=== PATIENT | male | born 1950 | race Two or more races ===

== ENCOUNTER → 2017-04-20 | Outpatient (REF) | payer OTHER ==
[2017-04-20 19:03] LABS: BASO # 0.1 10^3/uL (0.0-0.2); BASO % 0.8 % (0.0-1.0); EOS % 0.5 % (0.0-3.0); IMMATURE GRANULOCYTE % 0.2 % (0-0); LYMPH # 1.5 10^3/uL (1.5-4.5); LYMPH % 23.5 % (24.0-44.0); MEAN CORPUSCULAR HEMOGLOBIN 32.8 pg (27.0-33.0); MEAN CORPUSCULAR HGB CONC 33.8 g/dl (32.0-36.5); MONO # 0.6 10^3/uL (0.0-0.8); MONO % 8.5 % (0.0-5.0); NEUTROPHILS # 4.4 10^3/uL (1.8-7.7); NEUTROPHILS % 66.5 % (36.0-66.0); PLATELET COUNT, AUTOMATED 184 10^3/uL (150-450); RED CELL DISTRIBUTION WIDTH 12.5 % (11.5-14.5); WHITE BLOOD COUNT 6.6 10^3/uL (4.0-10.0)
[2017-04-20 19:21] LABS: ALBUMIN 3.7 GM/DL (3.2-5.2); ALBUMIN/GLOBULIN RATIO 0.97 (1.00-1.93); ALKALINE PHOSPHATASE 56 U/L (45-117); ALT/SGPT 32 U/L (12-78); ANION GAP 8 MEQ/L (8-16); AST/SGOT 21 U/L (7-37); BILIRUBIN,TOTAL 0.8 MG/DL (0.2-1.0); BLOOD UREA NITROGEN 16 MG/DL (7-18); CALCIUM LEVEL 9.5 MG/DL (8.8-10.2); CARBON DIOXIDE LEVEL 31 MEQ/L (21-32); CHLORIDE LEVEL 102 MEQ/L (98-107); CREATININE FOR GFR 0.85 MG/DL (0.70-1.30); GLOMERULAR FILTRATION RATE > 60.0 (>49); GLUCOSE, FASTING 96 MG/DL (80-110); POTASSIUM SERUM 4.1 MEQ/L (3.5-5.1); SODIUM LEVEL 141 MEQ/L (136-145); TOTAL PROTEIN 7.5 GM/DL (6.4-8.2)
== END ==
LOC: M SFHCADAM 14:44
PROVIDERS: ATTEND Family Medicine
DX: Z87.898 Personal history of other specified conditions (principal); Z86.711 Personal history of pulmonary embolism; Z23 Encounter for immunization
CPT/HCPCS: 80053; 85025; 90471; 90662; 90670; G0463

== ENCOUNTER → 2017-05-31 | Outpatient (REF) | payer OTHER | LOC: M SFHCADAM 12:55 | PROVIDERS: ATTEND Family Medicine | DX: Z11.4 Encounter for screening for human immunodeficiency virus [HIV] (principal); Z83.49 Family history of other endocrine, nutritional and metabolic diseases; I10 Essential (primary) hypertension | CPT/HCPCS: 81256; 87389; G0463 ==

== ENCOUNTER → 2018-01-21 | Outpatient (CLI) | payer OTHER | LOC: M ADAMS 10:27 | DX: M51.36 Other intervertebral disc degeneration, lumbar region (principal); M51.37 Other intervertebral disc degeneration, lumbosacral region; M25.78 Osteophyte, vertebrae | CPT/HCPCS: 72100 ==

== ENCOUNTER → 2018-09-12 | Outpatient (CLI) | payer MEDICARE ==
--- NOTE | 2018-09-13 18:31 | REP ---
Clinical: Left hip pain. Technique: Neutral and frog lateral views of the left hip. Findings: Osseous structures, joint spaces, and surrounding soft tissues are relatively normal for age. No overt osteoarthritic degenerative changes are appreciated. No acute fracture dislocation. Impression: Age-appropriate left hip radiographs. Electronically Signed by Srinath Richardson MD 09/13/2018 06:22 P
--- NOTE | 2018-09-13 18:33 | REP ---
Clinical: Cough. Technique: PA and lateral. Comparison: None. Findings: Presumed chronic-appearing bibasilar changes (left greater than right) including flattening of the diaphragmatic surfaces and blunting of the left costophrenic angle. No focal consolidation. No obvious effusion. No pneumothorax. Mediastinum and cardiac silhouette are within normal limits. Impression: Presumed chronic bibasilar pleuroparenchymal changes. Left effusion cannot be excluded. No prior examinations available for comparison. If the patient remains symptomatic consider chest CT for further investigation. Electronically Signed by Srinath Richardson MD 09/13/2018 06:24 P
== END ==
LOC: M ADAMS 16:22
PROVIDERS: ATTEND Family Medicine
DX: R91.8 Other nonspecific abnormal finding of lung field (principal); M25.552 Pain in left hip; R05 Cough
CPT/HCPCS: 71046; 73502; 80053; 85025; G0463

== ENCOUNTER → 2018-09-12 | Outpatient (REF) | payer MEDICARE ==
[2018-09-12 20:35] LABS: BASO # 0.1 10^3/uL (0.0-0.2); BASO % 1.1 % (0.0-1.0); EOS # 0.3 10^3/uL (0.0-0.50); EOS % 3.2 % (0.0-3.0); HEMATOCRIT 43.8 % (42.0-52.0); HEMOGLOBIN 14.9 g/dl (13.5-17.5); LYMPH # 2.1 10^3/uL (1.5-4.5); LYMPH % 26.2 % (24.0-44.0); MEAN CORPUSCULAR HEMOGLOBIN 32.9 pg (27.0-33.0); MEAN CORPUSCULAR VOLUME 96.7 fl (80.0-96.0); MONO # 0.6 10^3/uL (0.0-0.8); MONO % 7.1 % (0.0-5.0); NEUTROPHILS % 62.3 % (36.0-66.0); PLATELET COUNT, AUTOMATED 204 10^3/uL (150-450); RED BLOOD COUNT 4.53 10^6/uL (4.30-6.10)
[2018-09-12 20:39] LABS: ALBUMIN 3.4 GM/DL (3.2-5.2); ALT/SGPT 25 U/L (12-78); BILIRUBIN,TOTAL 0.6 MG/DL (0.2-1.0); BLOOD UREA NITROGEN 17 MG/DL (7-18); CARBON DIOXIDE LEVEL 31 MEQ/L (21-32); CHLORIDE LEVEL 101 MEQ/L (98-107); CREATININE FOR GFR 0.89 MG/DL (0.70-1.30); GLOMERULAR FILTRATION RATE > 60.0 (>49); GLUCOSE, FASTING 115 MG/DL (70-100); POTASSIUM SERUM 3.1 MEQ/L (3.5-5.1); SODIUM LEVEL 138 MEQ/L (136-145); TOTAL PROTEIN 7.5 GM/DL (6.4-8.2)
== END ==
LOC: M SFHCADAM 16:20
PROVIDERS: ATTEND Family Medicine
DX: I10 Essential (primary) hypertension (principal)

== ENCOUNTER → 2018-10-04 | Outpatient (CLI) | payer MEDICARE ==
--- NOTE | 2018-10-04 15:25 | REP ---
LUMBOSACRAL SPINE: AP and lateral views of the lumbosacral spine performed with three total views obtained. There is no compression fracture. There is straightening of the normal lumbar lordosis. There is mild spurring of L1 and L2 with a more moderate degree of spurring of L3 through S1. There is mild disc space narrowing and subchondral sclerosis at all levels. There is sclerosis and spurring at the posterior facet joints of L3-4, L4-5 and L5-S1. The posterior elements are intact. There is slight curvature toward the left. IMPRESSION: Degenerative changes as above. Electronically Signed by Gerson López MD 10/04/2018 05:04 P
== END ==
LOC: M ADAMS 13:39
PROVIDERS: ATTEND Family Medicine
DX: M51.36 Other intervertebral disc degeneration, lumbar region (principal); M51.37 Other intervertebral disc degeneration, lumbosacral region; M25.78 Osteophyte, vertebrae

== ENCOUNTER → 2018-10-24 | Outpatient (CLI) | payer MEDICARE ==
--- NOTE | 2018-10-24 16:15 | REP ---
MR LUMBAR SPINE WITHOUT CONTRAST: HISTORY: Back pain. Decreased signal intensity on T2-weighted images is present in the lumbar intervertebral discs. The L2-3 through L5-S1 intervertebral discs are decreased in height. These findings are consistent with disc degeneration. A diffuse disc bulge is present at the L1-2 level. There is minimal compression of the thecal sac. The L1 nerves exit the neural foramina without compression. A diffuse disc bulge is present at the L2-3 level. There is an increase in the amount of epidural fat. There is minimal compression of the thecal sac. There is hypertrophy of the posterior articulating facets. The L2 nerves exit the neural foramina without compression. A diffuse disc bulge is present at the L3-4 level. There is an increase in the amount of epidural fat. There is minimal compression of the thecal sac. There is hypertrophy of the posterior articulating facets. The L3 nerves exit the neural foramina without compression. A diffuse disc bulge is present at the L4-5 level. There is an increase in the amount of epidural fat. There is minimal compression of the thecal sac. There is hypertrophy of the posterior articulating facets. There is compression of the right L4 nerve in the neural foramen. The left L4 nerve exits the neural foramen without compression. A diffuse disc bulge is present at the L5-S1 level. This abuts the thecal sac. There is hypertrophy of the posterior articulating facets. There is compression of the left L5 nerves in the neural foramina. The conus medullaris is normal in appearance terminating at the level of the L1-2 intervertebral disc. Hemangiomas are present in the L2 through 4 vertebral bodies. Increased signal intensity on T2 weighted imaged is present in the endplates of the L2 through S1 vertebral bodies. This represents degenerative change. IMPRESSION:1. Diffuse disc bulge at the L1-2 level with minimal thecal sac compression. 2. Diffuse disc bulge and epidural lipomatosis at the L2-3 through L4-5 levels with minimal thecal sac compression. There is compression of the right L4 nerve in the neural foramen. 3. Diffuse disc bulge at the L5-S1 level. This abuts the thecal sac. There is compression of the L5 nerves in the neural foramina. Electronically Signed by Collin Saavedra MD 10/24/2018 04:22 P
== END ==
LOC: M RAD 14:52
PROVIDERS: ATTEND Family Medicine
DX: M51.36 Other intervertebral disc degeneration, lumbar region (principal); M51.37 Other intervertebral disc degeneration, lumbosacral region; M51.26 Other intervertebral disc displacement, lumbar region; M51.27 Other intervertebral disc displacement, lumbosacral region

== ENCOUNTER → 2019-01-06 | Outpatient (CLI) | payer MEDICARE ==
--- NOTE | 2019-01-06 11:39 | REP ---
Chest x-ray: Three views. History: Chronic cough. Comparison chest x-ray September 12, 2018. Findings: There is mild linear pleuroparenchymal fibrosis at the left base unchanged. Left hemidiaphragm is elevated as on prior study. Heart is not enlarged. No acute infiltrate is seen. The thoracic aorta somewhat tortuous. Impression: Chronic pleuroparenchymal changes on the left. No acute disease. Electronically Signed by Khanh Lugo MD 01/06/2019 11:30 A
== END ==
LOC: M ADAMS 10:13
PROVIDERS: ATTEND Family Medicine
DX: J84.10 Pulmonary fibrosis, unspecified (principal); R05 Cough
CPT/HCPCS: 71046; G0463

== ENCOUNTER → 2019-01-09 | Outpatient (CLI) | payer MEDICARE ==
--- NOTE | 2019-01-09 15:36 | NUR ---
Pt seen for Modified Barium Swallow Study d/t c/o globus sensation, regurgitation of breads and gag/vomiting often during meals. Pt presents without oral or pharyngeal phase dysphagia but does have esophageal dysfunction as characterized by: bolus is unable to pass entirely through the upper esophagus. Pt given canned peaches with thin-liquid base and bread spread with barium. Stasis noted in thupper esophagus with minimal clearing given liquid wash. Delayed gag with bread item and small amount of vomiting. Mostof bread expelled and stasis was absent from the esophagus. Pt trialed barium tablet with thin-liquid wash. Tablet remained in the upper esophagus. Liquid wash was unsuccessful. Ask Pt to try to cough it out and he did successfully with a very forceful cough. Recommend: Moist soft solids (extra sauces/gravies/condiments) and regular thin liquids. Meds crushed in puree assist. Recommend: consider Endoscopy Addendum: 01/09/19 at 1543 by BENNETT VALENZUELA JUNAID Amended: Links added.
--- NOTE | 2019-01-09 15:43 | REP ---
Examination Requested: Cookie Swallow Reason For Exam: Dysphasia The procedure was performed by TERESA Haq, under the direct supervision of Dr. Del Valle. The procedure was performed with Magaly Oropeza from speech pathology present. 5 ml aliquots of thin, pudding, mixed fruit, soft food, and pill consistency barium was administered. No aspiration or penetration was visualized throughout the course of the exam. However, most consistencies were unable to pass into the upper esophagus, which is concerning for obstruction. The detailed report of this examination will be provided by speech pathology. 4.1 minutes of fluoroscopy time was utilized for this procedure. Reviewed by TERESA Landon 01/09/2019 02:55 P Electronically Signed by Gerson Del Valle MD 01/09/2019 03:34 P
== END ==
LOC: M ST 10:56
PROVIDERS: ATTEND Family Medicine
DX: R13.10 Dysphagia, unspecified (principal)

== ENCOUNTER → 2019-07-14 | Outpatient (CLI) | payer MEDICARE ==
--- NOTE | 2019-07-15 07:53 | REP ---
Bilateral lower extremity duplex arterial ultrasound: Right lower extremity: Brachial artery peak systole: 140 mmHg. Dorsalis pedis peak systole: 150 mmHg. SYMONE: 1.0 Peak Systolic Phasicity Velocity [employer] 111 biphasic Profunda 53 point Y - SFA prox 880.1 biphasic SFA mid 118 triphasic SFA dist 146 triphasic Pop 103.3 triphasic THOM prox 64.7 triphasic Tib/P tr 74.7 triphasic ETHYL BLENDER pr 49.8 triphasic ETHYL BLENDER dst occluded -- THOM dst the 114 Triphasic Left lower extremity: Brachial artery peak systole: 140 mmHg. Dorsalis pedis peak systole: 160 mmHg SYMONE: 1.1 Peak Systolic Phasicity Velocity [employer] 82.2 triphasic Profunda 74.0 triphasic SFA prox 160 triphasic SFA mid 127 triphasic SFA dist 93.9 triphasic Pop 71.1 triphasic THOM prox 68.5 biphasic Tib/P tr 78.9 triphasic ETHYL BLENDER pr 71.1 triphasic ETHYL BLENDER dst 74.4 triphasic THOM dst 56.4 triphasic Impression: There is atheromatous plaque bilaterally. There is mild stenosis in the right mid and distal SFA. The right ETHYL BLENDER is occluded distally, collateral flow is identified. There is a stenosis in the distal right THOM. There is a mild stenosis in the proximal and distal left SFA. Electronically Signed by Gerson Del Valle MD 07/15/2019 07:44 A
--- NOTE | 2019-07-15 08:45 | REP ---
Bilateral lower extremity duplex venous ultrasound with reflux study: History: Claudication. Chronic venous hypertension. Findings: There is echogenic material thickening the wall of the popliteal vein on the right consistent with old thrombus. Otherwise, the deep veins are anechoic and fully compressible from the groin to the popliteal fossa in both lower extremities on two-dimensional scanning. Color flow and spectral Doppler interrogation are unremarkable. There is no evidence of occlusive DVT. No other evidence of DVT is seen. Reflux findings: Significant reflux is seen in both lower extremity deep venous systems. On the right, there are collaterals seen in the proximal thigh at the greater saphenous vein. At mid thigh there is a collateral as well. At the proximal greater saphenous vein there is 2.0 second duration reflux in a 7.3 mm greater saphenous vein. The greater saphenous vein at the midthigh on the right measures 6.2 mm and does not show reflux. At the knee the greater saphenous vein measures 6.7 mm without reflux. The lesser saphenous vein measures 4.5 mm and demonstrates 3.0 second duration reflux. Reflux greater than 0.5 seconds in duration is seen in the common femoral vein as well as in the anterior accessory greater saphenous vein and in the proximal mid and distal superficial femoral vein and the popliteal vein. On the right, reflux greater than 0.5 second duration is seen in the common femoral vein, the proximal mid and distal superficial femoral vein, and the popliteal vein. The greater saphenous vein measures 7.6 mm in dimension proximally at the saphenofemoral junction without observable reflux. At mid thigh the GSV measures 5.1 mm without reflux. At the knee its measurement is 4.9 mm without observable reflux. The lesser saphenous vein on the left measures 6.3 mm in diameter and demonstrates 3.3 second duration reflux. Impression: 1. 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 No other evidence of DVT. 2. There is deep system reflux bilaterally in the lower extremities. Reflux is seen in the lesser saphenous veins bilaterally as well and in the proximal greater saphenous vein on the right. Electronically Signed by Khanh Lugo MD 07/15/2019 09:54 A
== END ==
LOC: M RAD 13:32
PROVIDERS: ATTEND Physician Assistant
DX: I70.213 Atherosclerosis of native arteries of extremities with intermittent claudication, bilateral legs (principal); I87.393 Chronic venous hypertension (idiopathic) with other complications of bilateral lower extremity

== ENCOUNTER → 2019-07-18 | Outpatient (REF) | payer MEDICARE | LOC: M SFHCADAM 07:12 | PROVIDERS: ATTEND Physician Assistant Medical | DX: E79.0 Hyperuricemia without signs of inflammatory arthritis and tophaceous disease (principal) ==

== ENCOUNTER → 2019-09-08 | Outpatient (CLI) | payer MEDICARE ==
[~2019-09-08] MED LIST: E-Z-GAS II EFFERVESCENT PACKET (SODIUM BICARB./CITRIC ACID/SIMETHICONE) As Ordered ONE; E-Z-HD 98% w/w 340GM SUSP BTL As Ordered ONE; E-Z-PAQUE 96% w/w SUSP 176GM BTL As Ordered ONE
--- NOTE | 2019-09-08 18:12 | REP ---
Esophagram The procedure was performed under the direct supervision of Dr. Lugo. The images were reviewed with Dr. Lugo. A single view PA chest x-ray is submitted as a sorter packer film. There is no change compared to a previous chest x-ray performed on 01/06/2019 Liquid barium and gas producing granules were given in the erect position as well as liquid barium in the prone oblique positions in order to perform a double contrast esophagram examination. The oral and pharyngeal stages of deglutition are unremarkable. There is a large Zenker's diverticulum. Esophageal transport is prompt and efficient and there is no esophagitis, stricture, mucosal ring or hiatal hernia. Gastroesophageal reflux is not demonstrated on this examination. Impression: There is a large Zenker's diverticulum. Otherwise unremarkable double contrast esophagram examination. One minute of fluoro time was utilized for this procedure. Electronically Signed by TERESA Chavez 09/08/2019 05:30 P Electronically Signed by Gerson López MD 09/08/2019 06:04 P
== END ==
LOC: M RAD 07:40
PROVIDERS: ATTEND Internal Medicine Gastroenterology
DX: R13.10 Dysphagia, unspecified (principal)

== ENCOUNTER → 2020-04-08 | Outpatient (REF) | payer MEDICARE ==
[2020-04-08 16:53] LABS: BASO # 0.1 10^3/uL (0.0-0.2); BASO % 0.8 % (0.0-1.0); EOS % 0.1 % (0.0-3.0); HEMATOCRIT 45.5 % (42.0-52.0); HEMOGLOBIN 14.9 g/dl (13.5-17.5); LYMPH # 1.6 10^3/uL (1.5-5.0); LYMPH % 20.1 % (24.0-44.0); MEAN CORPUSCULAR HGB CONC 32.7 g/dl (32.0-36.5); MEAN CORPUSCULAR VOLUME 100.7 fl (80.0-96.0); MONO # 0.9 10^3/uL (0.0-0.8); MONO % 10.9 % (0.0-5.0); NEUTROPHILS # 5.3 10^3/uL (1.5-8.5); NEUTROPHILS % 67.7 % (36.0-66.0); PLATELET COUNT, AUTOMATED 205 10^3/uL (150-450); RED BLOOD COUNT 4.52 10^6/uL (4.30-6.10); WHITE BLOOD COUNT 7.8 10^3/uL (4.0-10.0)
[2020-04-08 17:15] LABS: HEMOGLOBIN A1c 5.1 %
[2020-04-08 17:20] LABS: ALBUMIN 3.6 GM/DL (3.2-5.2); ALT/SGPT 38 U/L (12-78); BILIRUBIN,TOTAL 0.5 MG/DL (0.2-1.0); BLOOD UREA NITROGEN 14 MG/DL (7-18); CARBON DIOXIDE LEVEL 29 MEQ/L (21-32); CHLORIDE LEVEL 102 MEQ/L (98-107); CHOLESTEROL LEVEL 221 MG/DL (<200); CHOLESTEROL RISK RATIO 1.888 (<5); CREATININE FOR GFR 0.95 MG/DL (0.70-1.30); GLOMERULAR FILTRATION RATE > 60.0 (>42); GLUCOSE, FASTING 110 MG/DL (70-100); HDL CHOLESTEROL 117 MG/DL (>40); LDL CHOLESTEROL 73 MG/DL (<100); NON-HDL-C 104 MG/DL; POTASSIUM SERUM 4.7 MEQ/L (3.5-5.1); SODIUM LEVEL 138 MEQ/L (136-145); TOTAL PROTEIN 7.3 GM/DL (6.4-8.2); TRIGLYCERIDES LEVEL 154 MG/DL (<150)
== END ==
LOC: M SFHCADAM 11:08
PROVIDERS: ATTEND Physician Assistant Medical
DX: R13.10 Dysphagia, unspecified (principal); E66.01 Morbid (severe) obesity due to excess calories; I11.9 Hypertensive heart disease without heart failure; Z79.899 Other long term (current) drug therapy

== ENCOUNTER → 2020-11-10 | Outpatient (CLI) | payer MEDICARE ==
--- NOTE | 2020-11-10 17:57 | REP ---
INDICATION: DIVERTICULUM OF ESOPHAGUS. COMPARISON: Previous exam dated 09/08/2019 TECHNIQUE: This procedure was performed by [facility], under the direct supervision of Dr. López. Images were reviewed with Dr. López prior to dictation. Liquid barium and gas producing crystals were given in the erect position, as well as liquid barium in the prone oblique position in order to perform a double contrast esophagram examination. FINDINGS: A single view PA chest x-ray is submitted as a environmental programs specialist film. The superior mediastinal structures are midline. The heart size is within normal limits. The lungs are clear. The oral and pharyngeal stages of deglutition were unremarkable. Again visualized is a large Zenker's diverticulum, there is no change since the previous exam. Esophageal transport is prompt and efficient and there is no evidence of esophagitis, stricture, or mucosal ring. There is no evidence of a hiatal hernia. Gastroesophageal reflux was visualized to the level of the gabriel. IMPRESSION: 1. Large Zenker's diverticulum, no change since previous exam dated 09/08/2019. 2. Gastroesophageal reflux to the level of the gabriel. 0.2 minutes of fluoroscopy time was utilized for this procedure. Some fluoroscopic images are performed with last image hold technology. These images require no additional radiation. <Electronically signed by Dianne Miller > 11/10/20 [id number] <Electronically signed by Gerson López > 11/10/20 [id number]
== END ==
LOC: M RAD 08:28
PROVIDERS: ATTEND Otolaryngology
DX: K22.5 Diverticulum of esophagus, acquired (principal); K21.9 Gastro-esophageal reflux disease without esophagitis

== ENCOUNTER → 2020-12-31 | Outpatient (CLI) | payer MEDICARE ==
[~2020-12-31] MED LIST changes: +ALLO100T; +ATOR1TAB21; +CENT1TAB2 PO; +CHOL50003 PO; -E-Z-GAS II EFFERVESCENT PACKET (SODIUM BICARB./CITRIC ACID/SIMETHICONE) As Ordered ONE; -E-Z-HD 98% w/w 340GM SUSP BTL As Ordered ONE; -E-Z-PAQUE 96% w/w SUSP 176GM BTL As Ordered ONE; +FENO54TA2; +FURO40TA2; +LISI10TA22; +POTA-151 PO; +XARE20TA
== END ==
LOC: M LABSMTC 11:32
PROVIDERS: ATTEND Anesthesiology
DX: Z01.812 Encounter for preprocedural laboratory examination (principal)

== ENCOUNTER 2021-01-05 08:41 | Day surgery (SDC) | payer MEDICARE ==
[~2021-01-05] VITALS: Ht 203.2 cm; Wt 113.4 kg
[~2021-01-05 08:41] MED LIST changes: +LR 1,000 ML IV ONE; -POTA-151 PO; +POTA20TA6 PO
[2021-01-05] MEDS ORDERED: fentaNYL 250 MCG/5 ML INJECTION (J3010) As Ordered ONE (09:56)
[2021-01-05] MEDS ORDERED: ONDANSETRON 4MG/2ML VIAL As Ordered ONE (09:57)
[2021-01-05] MEDS ORDERED: ROCURONIUM BROMIDE 50 MG/5 ML VIAL As Ordered ONE ×2 (09:57→11:15)
[2021-01-05] MEDS ORDERED: MIDAZOLAM INJ 2MG/2ML VIAL (J2250 PER 1MG) As Ordered ONE (09:57)
[2021-01-05] MEDS ORDERED: propofoL 200 MG/20 ML VIAL As Ordered ONE (09:57)
[2021-01-05] MEDS ORDERED: LIDOCAINE 2% 100MG/5ML SDV (FOR ANES.) As Ordered ONE (09:57)
[2021-01-05] MEDS ORDERED: dexameTHASONE 4 MG/ML 1ML VIAL (J1100 PER 1MG) As Ordered ONE (09:57)
[2021-01-05] MEDS ORDERED: CETACAINE SPRAY 5GM As Ordered ONE (09:59)
[2021-01-05] MEDS ORDERED: METHYLENE BLUE 0.5% (5MG/ML) 10 ML AMP (PROVAYBLUE) As Ordered ONE (10:26)
[2021-01-05] MEDS ORDERED: EPINEPHrine 1MG/ML INJ 30ML MD-VIAL As Ordered ONE (10:26)
[2021-01-05] MEDS ORDERED: SUGAMMADEX SODIUM 500 MG/5 ML VIAL (BRIDION) As Ordered ONE (11:11)
[2021-01-05] MEDS ORDERED: PHENYLephrine 500MCG 5ML (100MCG/ML) SYRINGE As Ordered ONE (11:12)
[2021-01-05] MEDS ORDERED: ACETAMINOPHEN 1000MG 100ML IV BTL (OFIRMEV) (J0131 PER 10MG) As Ordered ONE (11:24)
[2021-01-05] MEDS ORDERED: oxyCODONE 5MG TAB PO PRN (11:45)
[2021-01-05] MEDS ORDERED: LR 1,000 ML IV SCH (11:45)
[2021-01-05] MEDS ORDERED: ONDANSETRON 4MG/2ML VIAL IV PRN (11:45)
[2021-01-05] MEDS ORDERED: HYDROMORPHONE HCL 0.5 MG/ 0.5 ML SYRINGE (J1170 PER 1) IV PRN (11:45)
[2021-01-05] MEDS ORDERED: fentaNYL 100 MCG/2 ML INJECTION (J3010) IV PRN (11:45)
--- NOTE | 2021-01-05 14:11 | RO ---
OPERATIVE NOTE DATE OF OPERATION: 01/05/2021 PREOPERATIVE DIAGNOSIS: Zenker's diverticulum. POSTOPERATIVE DIAGNOSIS: Zenker's diverticulum. OPERATIVE PROCEDURE: Direct laryngoscopy. FINDINGS: Because the patient was not able to open his mouth well and he had large medial incisors with a narrow mandibular arch, I was unable to advance the laryngoscope down far enough into the hypopharynx so that I could see the opening to the esophagus. PROCEDURE IN DETAIL: Under general anesthesia, with the patient intubated, the patient was draped in the usual manner. I used a dental guard Aquaplast. I inserted the laryngoscope, advanced it down through the mouth into the oropharynx and hypopharyngeal area. I advanced it into the hypopharyngeal area, but I could not get it far enough down because of the above problems. I was able to see the diverticulum. I could put the scope in and I scoped down and looked inside the sac, but I could not get a good view of the opening into the esophagus. I tried manipulating his tongue and pushing the laryngoscope further, however, I was afraid that I might fracture his incisors. So, after attempting this for a period of time, I decided that I would not do the procedure. The patient tolerated the procedure well. There was no blood loss. The patient was extubated and transferred to the recovery room in excellent condition.
[2021-01-05 15:35] VITALS: BP 120/60
[2021-01-05 16:05] VITALS: BP 126/63
[2021-01-05 16:35] VITALS: BP 127/64
[2021-01-05] MEDS: POTASSIUM CHLORIDE 10 MEQ SR TABLET PO SCH (17:27)
[2021-01-05] MEDS: FUROSEMIDE 20 MG TAB PO SCH (17:27)
[2021-01-05] MEDS: ATORVASTATIN 20 MG TAB PO SCH (17:27)
[2021-01-05] MEDS: allopurinoL 100 MG TAB PO SCH (17:29)
[2021-01-05] MEDS: VITAMIN D 1,000 INTERNATIONAL UNITS TABLET PO SCH (17:29)
[2021-01-05 17:35] VITALS: BP 132/73
[2021-01-05] MEDS ORDERED: RIVAROXABAN 20 MG TAB (XARELTO) PO SCH (18:00)
[2021-01-05] MEDS: FENOFIBRATE 48 MG TAB (TRICOR) PO SCH (18:20)
[2021-01-05 18:44] VITALS: BP 135/70
[2021-01-05 22:00] VITALS: BP 108/58
[2021-01-06] MEDS ORDERED: LORazepam 1 MG TAB PO ONE (00:15)
[2021-01-06] MEDS ORDERED: diphenhydrAMINE 25MG CAP PO ONE (01:45)
[2021-01-06 02:00] VITALS: BP 107/53
[2021-01-06 05:49] VITALS: BP 109/71
[2021-01-06 09:59] VITALS: BP 109/71
[2021-01-06] MEDS: POTASSIUM CHLORIDE 10 MEQ SR TABLET PO SCH (09:59)
[2021-01-06] MEDS: FUROSEMIDE 20 MG TAB PO SCH (09:59)
[2021-01-06] MEDS: ATORVASTATIN 20 MG TAB PO SCH (09:59)
[2021-01-06] MEDS: allopurinoL 100 MG TAB PO SCH (10:00)
[2021-01-06] MEDS: FENOFIBRATE 48 MG TAB (TRICOR) PO SCH (10:00)
[2021-01-06] MEDS: VITAMIN D 1,000 INTERNATIONAL UNITS TABLET PO SCH (10:00)
== END 2021-01-06 12:25 | disposition home or self-care (01) ==
LOC: M SDC 08:41 → M MS5PR 15:35 → M SDC 01-06 12:25
PROVIDERS: ATTEND Otolaryngology
DX: K22.5 Diverticulum of esophagus, acquired (principal); I10 Essential (primary) hypertension; K21.9 Gastro-esophageal reflux disease without esophagitis; M10.9 Gout, unspecified; F41.9 Anxiety disorder, unspecified; F32.9 Major depressive disorder, single episode, unspecified; Z79.899 Other long term (current) drug therapy
CPT/HCPCS: 31525; J0131; J1100; J2250; J2370; J2405; J3010

== ENCOUNTER → 2021-05-09 | Outpatient (REF) | payer MEDICARE ==
[~2021-05-09] MED LIST changes: -LR 1,000 ML IV ONE
[2021-05-09 18:31] LABS: BASO # 0.1 10^3/uL (0.0-0.2); BASO % 0.7 % (0.0-1.0); EOS # 0.2 10^3/uL (0.0-0.5); EOS % 2.3 % (0.0-3.0); HEMATOCRIT 40.2 % (42.0-52.0); HEMOGLOBIN 13.4 g/dl (13.5-17.5); LYMPH # 1.2 10^3/uL (1.5-5.0); LYMPH % 16.4 % (24.0-44.0); MEAN CORPUSCULAR HEMOGLOBIN 33.7 pg (27.0-33.0); MEAN CORPUSCULAR HGB CONC 33.3 g/dl (32.0-36.5); MONO % 13.1 % (2.0-8.0); NEUTROPHILS # 4.9 10^3/uL (1.5-8.5); NEUTROPHILS % 67.2 % (36.0-66.0); PLATELET COUNT, AUTOMATED 143 10^3/uL (150-450); RED BLOOD COUNT 3.98 10^6/uL (4.30-6.10); WHITE BLOOD COUNT 7.3 10^3/uL (4.0-10.0)
[2021-05-09 19:02] LABS: ALBUMIN 3.3 GM/DL (3.2-5.2); ALT/SGPT 61 U/L (12-78); BILIRUBIN,TOTAL 0.7 MG/DL (0.2-1.0); BLOOD UREA NITROGEN 18 MG/DL (7-18); CALCIUM LEVEL 9.4 MG/DL (8.8-10.2); CARBON DIOXIDE LEVEL 26 MEQ/L (21-32); CHLORIDE LEVEL 103 MEQ/L (98-107); CHOLESTEROL LEVEL 233 MG/DL (<200); CHOLESTEROL RISK RATIO 2.647 (<5); CREATININE FOR GFR 1.05 MG/DL (0.70-1.30); GLOMERULAR FILTRATION RATE > 60.0 (>42); GLUCOSE, FASTING 126 MG/DL (70-100); HDL CHOLESTEROL 88 MG/DL (>40); LDL CHOLESTEROL 118 MG/DL (<100); NON-HDL-C 145 MG/DL; POTASSIUM SERUM 3.8 MEQ/L (3.5-5.1); SODIUM LEVEL 136 MEQ/L (136-145); TOTAL 25(OH) VITAMIN D 37.8 NG/ML (30.0-100.0); TOTAL PROTEIN 7.3 GM/DL (6.4-8.2); TRIGLYCERIDES LEVEL 133 MG/DL (<150)
[2021-05-09 19:09] LABS: HEMOGLOBIN A1c 4.9 %
== END ==
LOC: M SFHCADAM 16:08
PROVIDERS: ATTEND Physician Assistant Medical
DX: I11.9 Hypertensive heart disease without heart failure (principal); R13.10 Dysphagia, unspecified; E66.01 Morbid (severe) obesity due to excess calories; Z79.899 Other long term (current) drug therapy

== ENCOUNTER → 2021-06-06 | Outpatient (REF) | payer MEDICARE ==
[2021-06-06 17:57] LABS: HEMATOCRIT 40.6 % (42.0-52.0); HEMOGLOBIN 13.1 g/dl (13.5-17.5); MEAN CORPUSCULAR HEMOGLOBIN 32.7 pg (27.0-33.0); MEAN CORPUSCULAR HGB CONC 32.3 g/dl (32.0-36.5); MEAN CORPUSCULAR VOLUME 101.2 fl (80.0-96.0); PLATELET COUNT, AUTOMATED 192 10^3/uL (150-450); RED BLOOD COUNT 4.01 10^6/uL (4.30-6.10); WHITE BLOOD COUNT 6.2 10^3/uL (4.0-10.0)
[2021-06-06 19:54] LABS: FOLATE 23.1 NG/ML; PERCENT SATURATION 26.7 % (19.7-50.0)
== END ==
LOC: M SFHCADAM 11:35
PROVIDERS: ATTEND Physician Assistant Medical
DX: D64.9 Anemia, unspecified (principal)

== ENCOUNTER → 2021-11-09 | Outpatient (CLI) | payer MEDICARE ==
[~2021-11-09] MED LIST changes: -ALLO100T; +ALLO100T PO; -ATOR1TAB21; +ATOR1TAB21 PO; -FENO54TA2; +FENO54TA2 PO; +HYDR-3490 PO; -LISI10TA22; +LISI10TA22 PO; +POTA-151 PO; -POTA20TA6 PO; -XARE20TA; +XARE20TA PO
== END ==
LOC: M LABSMTC 11:06
PROVIDERS: ATTEND Anesthesiology
DX: Z01.818 Encounter for other preprocedural examination (principal); Z11.52 Encounter for screening for COVID-19

== ENCOUNTER 2021-11-14 09:10 | Day surgery (SDC) | payer MEDICARE ==
[~2021-11-14] VITALS: Ht 185.4 cm; Wt 113.8 kg
[~2021-11-14 09:10] MED LIST changes: +NS 1,000 ML IV ONE
[2021-11-14] MEDS ORDERED: fentaNYL 100 MCG/2 ML INJECTION As Ordered ONE (09:22)
[2021-11-14] MEDS ORDERED: propofoL 500 MG/50 ML VIAL As Ordered ONE (09:22)
[2021-11-14] MEDS ORDERED: LIDOCAINE 2% 100MG/5ML SDV (FOR ANES.) As Ordered ONE (09:22)
[2021-11-14] MEDS ORDERED: ePHEDrine SULFATE 25 MG/5 ML(5MG/ML) SYRINGE As Ordered ONE (10:48)
[2021-11-14 11:30] VITALS: BP 130/59
== END 2021-11-14 12:00 | disposition home or self-care (01) ==
LOC: M OPP 09:10
PROVIDERS: ATTEND Internal Medicine Gastroenterology
DX: Z12.11 Encounter for screening for malignant neoplasm of colon (principal); Z86.010 Personal history of colon polyps; D12.4 Benign neoplasm of descending colon; K29.70 Gastritis, unspecified, without bleeding; K29.80 Duodenitis without bleeding; R10.13 Epigastric pain; Z79.899 Other long term (current) drug therapy; Z88.8 Allergy status to other drugs, medicaments and biological substances; Z86.711 Personal history of pulmonary embolism; Z86.718 Personal history of other venous thrombosis and embolism; Z87.891 Personal history of nicotine dependence
CPT/HCPCS: 43239; 45385; 88305; 88342; J3010

== ENCOUNTER → 2022-01-23 | Outpatient (REF) | payer MEDICARE ==
[~2022-01-23] MED LIST changes: -NS 1,000 ML IV ONE
== END ==
LOC: M LAB REF 16:07
PROVIDERS: ATTEND Physician Assistant Medical
DX: Z09 Encounter for follow-up examination after completed treatment for conditions other than malignant neoplasm (principal); B96.81 Helicobacter pylori [H. pylori] as the cause of diseases classified elsewhere

== ENCOUNTER → 2022-05-29 | Outpatient (REF) | payer MEDICARE ==
[2022-05-29 17:12] LABS: BASO % 0.6 % (0.0-1.0); EOS # 0.2 10^3/uL (0.0-0.5); EOS % 2.2 % (0.0-3.0); HEMATOCRIT 39.5 % (42.0-52.0); HEMOGLOBIN 12.9 g/dl (13.5-17.5); LYMPH # 1.6 10^3/uL (1.5-5.0); MEAN CORPUSCULAR HEMOGLOBIN 32.8 pg (27.0-33.0); MEAN CORPUSCULAR HGB CONC 32.7 g/dl (32.0-36.5); MEAN CORPUSCULAR VOLUME 100.5 fl (80.0-96.0); MONO # 0.6 10^3/uL (0.0-0.8); MONO % 8.8 % (2.0-8.0); NEUTROPHILS # 4.7 10^3/uL (1.5-8.5); NEUTROPHILS % 66.1 % (36.0-66.0); PLATELET COUNT, AUTOMATED 245 10^3/uL (150-450); RED BLOOD COUNT 3.93 10^6/uL (4.30-6.10); WHITE BLOOD COUNT 7.1 10^3/uL (4.0-10.0)
[2022-05-29 17:51] LABS: ALBUMIN 3.5 G/DL (3.2-5.2); ALKALINE PHOSPHATASE 48 U/L (46-116); ALT/SGPT 18 U/L (7.0-40); AST/SGOT 17 U/L (<34); BILIRUBIN,TOTAL 0.5 MG/DL (0.3-1.2); BLOOD UREA NITROGEN 17 MG/DL (9-23); CALCIUM LEVEL 9.2 MG/DL (8.3-10.6); CARBON DIOXIDE LEVEL 24 MMOL/L (20-31); CHLORIDE LEVEL 104 MMOL/L (98-107); CHOLESTEROL LEVEL 155 MG/DL (<200); CHOLESTEROL RISK RATIO 3.26 (<5); GLOMERULAR FILTRATION RATE > 60.0 (>42); GLUCOSE, FASTING 99 MG/DL (74-106); HDL CHOLESTEROL 47.5 MG/DL (>40); LDL CHOLESTEROL 74.7 MG/DL (<100); NON-HDL-C 108 MG/DL; POTASSIUM SERUM 4.3 MMOL/L (3.5-5.1); SODIUM LEVEL 138 MMOL/L (136-145); TOTAL PROTEIN 6.9 G/DL (5.7-8.2); TRIGLYCERIDES LEVEL 164 MG/DL (<150)
== END ==
LOC: M SFHCADAM 14:06
PROVIDERS: ATTEND Physician Assistant Medical
DX: I11.9 Hypertensive heart disease without heart failure (principal); I50.9 Heart failure, unspecified; E66.01 Morbid (severe) obesity due to excess calories

== ENCOUNTER → 2022-08-04 | Outpatient (CLI) | payer MEDICARE | LOC: M PLARAD 12:43 | PROVIDERS: ATTEND Physician Assistant | DX: S32.010A Wedge compression fracture of first lumbar vertebra, initial encounter for closed fracture (principal); X58.XXXA Exposure to other specified factors, initial encounter; Y92.9 Unspecified place or not applicable ==

== ENCOUNTER → 2022-08-18 | Outpatient (CLI) | payer MEDICARE | LOC: M SOG 09:07 | PROVIDERS: ATTEND Orthopaedic Surgery | DX: M54.50 Low back pain, unspecified (principal) ==

== ENCOUNTER → 2022-08-30 | Outpatient (REF) | payer MEDICARE ==
[2022-08-30 17:19] LABS: BASO # 0.1 10^3/uL (0.0-0.2); EOS # 0.3 10^3/uL (0.0-0.5); EOS % 4.4 % (0.0-3.0); HEMATOCRIT 36.6 % (42.0-52.0); LYMPH # 1.6 10^3/uL (1.5-5.0); LYMPH % 23.1 % (24.0-44.0); MEAN CORPUSCULAR HEMOGLOBIN 31.3 pg (27.0-33.0); MEAN CORPUSCULAR HGB CONC 32.8 g/dl (32.0-36.5); MEAN CORPUSCULAR VOLUME 95.6 fl (80.0-96.0); MONO # 0.6 10^3/uL (0.0-0.8); MONO % 8.5 % (2.0-8.0); NEUTROPHILS # 4.3 10^3/uL (1.5-8.5); NEUTROPHILS % 62.7 % (36.0-66.0); PLATELET COUNT, AUTOMATED 225 10^3/uL (150-450); RED BLOOD COUNT 3.83 10^6/uL (4.30-6.10); WHITE BLOOD COUNT 6.8 10^3/uL (4.0-10.0)
[2022-08-30 17:43] LABS: C REACTIVE PROTEIN QUANTITATIV 0.7 MG/DL (<1.0)
[2022-08-30 17:46] LABS: ALBUMIN 3.6 G/DL (3.2-5.2); BILIRUBIN,TOTAL 0.5 MG/DL (0.3-1.2); CALCIUM LEVEL 9.2 MG/DL (8.3-10.6); CREATININE FOR GFR 1.47 MG/DL (0.70-1.30); PHOSPHORUS LEVEL 3.4 MG/DL (2.4-5.1); POTASSIUM SERUM 4.3 MMOL/L (3.5-5.1); TOTAL 25(OH) VITAMIN D 33.5 NG/ML (20.0-100.0); TOTAL PROTEIN 6.9 G/DL (5.7-8.2)
[2022-08-30 17:56] LABS: ERYTHROCYTE SEDIMENTATION RATE 21 mm/hr (0-20)
== END ==
LOC: M SFHCADAM 14:29
PROVIDERS: ATTEND Physician Assistant Medical
DX: I11.9 Hypertensive heart disease without heart failure (principal); S32.010D Wedge compression fracture of first lumbar vertebra, subsequent encounter for fracture with routine healing; S32.030S Wedge compression fracture of third lumbar vertebra, sequela; R41.3 Other amnesia; Z79.899 Other long term (current) drug therapy

== ENCOUNTER → 2022-09-12 | Outpatient (CLI) | payer MEDICARE | LOC: M WHC 12:19 | PROVIDERS: ATTEND Physician Assistant Medical | DX: S32.010D Wedge compression fracture of first lumbar vertebra, subsequent encounter for fracture with routine healing (principal); S32.030S Wedge compression fracture of third lumbar vertebra, sequela; I11.9 Hypertensive heart disease without heart failure ==

== ENCOUNTER 2022-09-18 13:00 | Outpatient (RCR) | payer MEDICARE | END 2022-09-22 | LOC: M PT 13:00 | PROVIDERS: ATTEND Orthopaedic Surgery | DX: M54.50 Low back pain, unspecified (principal); M48.50XA Collapsed vertebra, not elsewhere classified, site unspecified, initial encounter for fracture ==

== ENCOUNTER → 2022-09-25 | Outpatient (CLI) | payer MEDICARE | LOC: M SOG 08:03 | PROVIDERS: ATTEND Orthopaedic Surgery | DX: M54.50 Low back pain, unspecified (principal) ==

== ENCOUNTER 2022-09-26 15:05 | Outpatient (RCR) | payer MEDICARE | END 2022-10-22 | LOC: M PT 15:05 | PROVIDERS: ATTEND Orthopaedic Surgery | DX: M54.50 Low back pain, unspecified (principal); M48.50XA Collapsed vertebra, not elsewhere classified, site unspecified, initial encounter for fracture ==

== ENCOUNTER 2023-01-30 18:09 | Inpatient (IN) | payer MEDICARE ==
[~2023-01-30] VITALS: Ht 177.8 cm; Wt 108.1 kg
[~2023-01-30 18:09] MED LIST changes: -FURO40TA2; +FURO40TA2 PO
[2023-01-30] MEDS ORDERED: NOREPINEPHRINE 4MG IN D5 250ML 4 MG in IV 1 EA IV SCH ×2 (18:20)
[2023-01-30] MEDS ORDERED: LIDOCAINE 2% 5ML JELLY UROJET TOP ONE (18:20)
[2023-01-30 18:36] LABS: HEMATOCRIT 37.9 % (42.0-52.0); HEMOGLOBIN 11.8 g/dl (13.5-17.5); MEAN CORPUSCULAR HEMOGLOBIN 32.4 pg (27.0-33.0); MEAN CORPUSCULAR HGB CONC 31.1 g/dl (32.0-36.5); MEAN CORPUSCULAR VOLUME 104.1 fl (80.0-96.0); PLATELET COUNT, AUTOMATED 184 10^3/uL (150-450); RED BLOOD COUNT 3.64 10^6/uL (4.30-6.10); WHITE BLOOD COUNT 9.2 10^3/uL (4.0-10.0)
[2023-01-30] MEDS ORDERED: VASOPRESSIN INJ 20 UNITS in NS 500 ML IV SCH (18:40)
[2023-01-30] MEDS ORDERED: NS 1,000 ML IV ONE ×2 (18:40)
[2023-01-30 18:45] LABS: ABG BASE EXCESS -20.1 (-2.0-2.0); ABG HCO3 12.4 MMOL/L (22.0-26.0); ABG PARTIAL PRESSURE O2 107.3 mmHg (75.0-100.0); ABG STANDARD HCO3 9.6 MMOL/L. (22.0-26.0); ABG TOTAL CO2 14.2 MMOL/L (23.0-31.0)
[2023-01-30 18:47] LABS: ABG PARTIAL PRESSURE CO2 61.2 mmHg (35.0-45.0); ABG pH (ARTERIAL) 6.923 UNITS (7.350-7.450)
[2023-01-30] MEDS ORDERED: D5W 1,000 ML IV SCH (18:50)
[2023-01-30] MEDS ORDERED: ISOVUE-370 76% 100ML VIAL As Ordered ONE (18:53)
[2023-01-30 19:02] LABS: INR 1.33; PROTHROMBIN TIME 16.7 SECONDS (12.5-14.5)
[2023-01-30 19:02] LABS: CK-MB VALUE MASS < 1.0 NG/ML (<3.6)
[2023-01-30 19:03] LABS: ETHYL ALCOHOL (ETHANOL) 0.286 % (0.000-0.010)
[2023-01-30 19:06] LABS: ACETAMINOPHEN LEVEL < 2.0 UG/ML (10.0-20.0); ALBUMIN 2.7 G/DL (3.2-5.2); ALKALINE PHOSPHATASE 50 U/L (46-116); ALT/SGPT 188 U/L (7.0-40); AST/SGOT 237 U/L (<34); BILIRUBIN,DIRECT < 0.1 MG/DL (<0.4); BILIRUBIN,TOTAL < 0.2 MG/DL (0.3-1.2); BLOOD UREA NITROGEN 16 MG/DL (9-23); CALCIUM LEVEL 9.3 MG/DL (8.3-10.6); CARBON DIOXIDE LEVEL 18 MMOL/L (20-31); CHLORIDE LEVEL 108 MMOL/L (98-107); CREATININE FOR GFR 1.32 MG/DL (0.70-1.30); GLOMERULAR FILTRATION RATE 56.6 (>42); GLUCOSE, FASTING 206 MG/DL (74-106); MAGNESIUM LEVEL 2.5 MG/DL (1.8-2.4); POTASSIUM SERUM 3.3 MMOL/L (3.5-5.1); SALICYLATE LEVEL < 3.0 MG/DL (<30); SODIUM LEVEL 142 MMOL/L (136-145); TOTAL PROTEIN 5.8 G/DL (5.7-8.2)
[2023-01-30 19:07] LABS: THYROID STIMULATING HORMONE 2.444 uIU/ML (0.55-4.78)
[2023-01-30 19:08] LABS: OSMOLALITY SERUM 376 MOSM/KG (280-301)
[2023-01-30 19:11] LABS: CPK CREATINE PHOSPHOKINASE 119 U/L (46-171); EOSINOPHILS 3 % (0-3); LYMPHOCYTES 47 % (16-44); MB/CK RELATIVE INDEX 0.84 (< OR =4); METAMYELOCYTES 1 % (0-0); MONOCYTES 3 % (0-5); NEUTROPHILS 39 % (28-66); PLATELET ESTIMATE NORMAL (NORMAL)
[2023-01-30 19:50] LABS: HIV SCREEN CENTAUR SOURCE NEGATIVE (NEGATIVE)
[2023-01-30 19:58] LABS: HEPATITIS C VIRUS ABY INDEX 0.12 INDEX (<0.8)
[2023-01-30] MEDS ORDERED: CHARCOAL ACTIVATED LIQUID 25GM/120ML BTL NG ONE (20:05)
[2023-01-30] MEDS ORDERED: PIPERACILLIN/TAZOBACTAM SOD 4.5 GM in D5W MINI-BAG PLUS 50 ML IV ONE (20:15)
[2023-01-30] MEDS ORDERED: NS 3,480 ML in IV 1 EA IV ONE (20:15)
[2023-01-30 20:31] LABS: LIPASE 57 U/L (12-53)
[2023-01-30 20:31] LABS: PARTIAL THROMBOPLASTIN TIME 38.4 SECONDS (24.8-34.2)
[2023-01-30 20:32] LABS: AMYLASE 61 U/L (30-118)
[2023-01-30 20:33] LABS: PHOSPHORUS LEVEL 6.4 MG/DL (2.4-5.1)
[2023-01-30] MEDS ORDERED: GLUCOSE 4GM CHEW TABLET PO PRN (21:30)
[2023-01-30] MEDS ORDERED: HEPARIN SOD (PORCINE) 5000UNITS/ML 1ML VIAL/SYRINGE SC SCH (21:30)
[2023-01-30] MEDS ORDERED: DEXTROSE 50% 50ML SYRINGE IV PRN (21:30)
[2023-01-30] MEDS ORDERED: GLUCAGON INJ 1MG VIAL SC PRN (21:30)
[2023-01-30 21:50] LABS: D-DIMER QUANT > 4000 ng/ml (<500)
[2023-01-30 22:00] VITALS: BP_SYST 124; BP_SYST 132; BP_DIAS 63; BP_DIAS 70; TEMP 94.8; O2SAT 98
[2023-01-30] MEDS ORDERED: THIAMINE 200MG 2ML VIAL IV ONE (22:00)
[2023-01-30 22:15] VITALS: O2SAT 98
[2023-01-30 22:23] LABS: ABG BASE EXCESS -13.4 (-2.0-2.0); ABG HCO3 14.5 MMOL/L (22.0-26.0); ABG O2 SATURATION 98.2 % (95.0-99.0); ABG PARTIAL PRESSURE CO2 41.1 mmHg (35.0-45.0); ABG PARTIAL PRESSURE O2 154.3 mmHg (75.0-100.0); ABG STANDARD HCO3 14.1 MMOL/L. (22.0-26.0); ABG TOTAL CO2 15.7 MMOL/L (23.0-31.0)
[2023-01-30 22:24] LABS: ABG pH (ARTERIAL) 7.165 UNITS (7.350-7.450)
[2023-01-30 22:49] LABS: HEMATOCRIT 34.5 % (42.0-52.0); MEAN CORPUSCULAR HEMOGLOBIN 31.6 pg (27.0-33.0); MEAN CORPUSCULAR HGB CONC 31.9 g/dl (32.0-36.5); MEAN CORPUSCULAR VOLUME 99.1 fl (80.0-96.0); PLATELET COUNT, AUTOMATED 193 10^3/uL (150-450); RED BLOOD COUNT 3.48 10^6/uL (4.30-6.10); WHITE BLOOD COUNT 8.9 10^3/uL (4.0-10.0)
[2023-01-30 23:00] VITALS: BP 141/68; TEMP 96.6; O2SAT 96; O2SAT 98
[2023-01-30 23:02] LABS: INR 1.21; PARTIAL THROMBOPLASTIN TIME 31.5 SECONDS (24.8-34.2); PROTHROMBIN TIME 15.6 SECONDS (12.5-14.5)
[2023-01-30 23:11] LABS: ALBUMIN 2.5 G/DL (3.2-5.2); BILIRUBIN,TOTAL 0.2 MG/DL (0.3-1.2); CALCIUM LEVEL 7.6 MG/DL (8.3-10.6); CREATININE FOR GFR 1.4 MG/DL (0.70-1.30); GLOMERULAR FILTRATION RATE 52.9 (>42); MAGNESIUM LEVEL 1.6 MG/DL (1.8-2.4); PHOSPHORUS LEVEL 4.5 MG/DL (2.4-5.1); POTASSIUM SERUM 3.7 MMOL/L (3.5-5.1); TOTAL PROTEIN 5.3 G/DL (5.7-8.2)
[2023-01-31] VITALS (57 sets, daily range): BP systolic 81–148; BP diastolic 44–70; TEMP 93–97.2; O2SAT 90–100
[2023-01-31] MEDS ORDERED: SODIUM BICARBONATE 150 MEQ in D5W 1,000 ML IV SCH ×2
[2023-01-31] MEDS ORDERED: CALCIUM GLUCONATE 1,000 MG in D5W MINI-BAG PLUS 100 ML IV ONE ×2
[2023-01-31] MEDS: MAG SULF 1GM/100ML (MAG RUN) 1 GM in IV 1 EA IV SCH ×4 (01:13→03:54)
[2023-01-31 01:38] LABS: ABG pH (ARTERIAL) 7.376 UNITS (7.350-7.450)
[2023-01-31 01:39] LABS: ABG BASE EXCESS -7.8 (-2.0-2.0); ABG HCO3 16.1 MMOL/L (22.0-26.0); ABG PARTIAL PRESSURE CO2 28.1 mmHg (35.0-45.0); ABG PARTIAL PRESSURE O2 225.3 mmHg (75.0-100.0); ABG STANDARD HCO3 18.2 MMOL/L. (22.0-26.0)
[2023-01-31] MEDS: ALBUTEROL SULFATE 2.5MG/0.5ML INH NEB SOLN NEB SCH ×6 (01:48→20:34)
[2023-01-31 02:04] LABS: HEMATOCRIT 32.6 % (42.0-52.0); HEMOGLOBIN 10.9 g/dl (13.5-17.5); MEAN CORPUSCULAR HGB CONC 33.4 g/dl (32.0-36.5); MEAN CORPUSCULAR VOLUME 95.6 fl (80.0-96.0); PLATELET COUNT, AUTOMATED 183 10^3/uL (150-450); RED BLOOD COUNT 3.41 10^6/uL (4.30-6.10); WHITE BLOOD COUNT 9.2 10^3/uL (4.0-10.0)
[2023-01-31 02:27] LABS: INR 1.18; PROTHROMBIN TIME 15.2 SECONDS (12.5-14.5)
[2023-01-31 02:28] LABS: PARTIAL THROMBOPLASTIN TIME 28.8 SECONDS (24.8-34.2)
[2023-01-31 02:47] LABS: ALBUMIN 2.4 G/DL (3.2-5.2); BILIRUBIN,TOTAL 0.3 MG/DL (0.3-1.2); CALCIUM LEVEL 8.1 MG/DL (8.3-10.6); CREATININE FOR GFR 1.52 MG/DL (0.70-1.30); GLOMERULAR FILTRATION RATE 48.1 (>42); MAGNESIUM LEVEL 1.4 MG/DL (1.8-2.4); PHOSPHORUS LEVEL 1.4 MG/DL (2.4-5.1); POTASSIUM SERUM 3.5 MMOL/L (3.5-5.1); TOTAL PROTEIN 5.2 G/DL (5.7-8.2)
[2023-01-31] MEDS ORDERED: POTASSIUM PHOSPHATE INJ 15 MMOL in D5W 250 ML IV ONE (05:00)
[2023-01-31] MEDS: PIPERACILLIN/TAZOBACTAM SOD 3.375 GM in D5W MINI-BAG PLUS 50 ML IV SCH ×3 (05:22→17:13)
[2023-01-31 05:34] LABS: ABG BASE EXCESS -5.6 (-2.0-2.0); ABG HCO3 18.2 MMOL/L (22.0-26.0); ABG O2 SATURATION 99.3 % (95.0-99.0); ABG PARTIAL PRESSURE CO2 30.3 mmHg (35.0-45.0); ABG PARTIAL PRESSURE O2 279.5 mmHg (75.0-100.0); ABG STANDARD HCO3 19.9 MMOL/L. (22.0-26.0); ABG TOTAL CO2 19.2 MMOL/L (23.0-31.0); ABG pH (ARTERIAL) 7.397 UNITS (7.350-7.450)
[2023-01-31 05:41] LABS: HEMATOCRIT 34.1 % (42.0-52.0); HEMOGLOBIN 11.4 g/dl (13.5-17.5); MEAN CORPUSCULAR HEMOGLOBIN 31.9 pg (27.0-33.0); MEAN CORPUSCULAR HGB CONC 33.4 g/dl (32.0-36.5); MEAN CORPUSCULAR VOLUME 95.5 fl (80.0-96.0); PLATELET COUNT, AUTOMATED 183 10^3/uL (150-450); RED BLOOD COUNT 3.57 10^6/uL (4.30-6.10); WHITE BLOOD COUNT 8.8 10^3/uL (4.0-10.0)
[2023-01-31 05:52] LABS: INR 1.12; PARTIAL THROMBOPLASTIN TIME 28.8 SECONDS (24.8-34.2); PROTHROMBIN TIME 14.6 SECONDS (12.5-14.5)
[2023-01-31] MEDS: MIDAZOLAM INJ 2MG/2ML VIAL IV PRN (05:54)
[2023-01-31] MEDS: MIDAZOLAM 100MG/100ML-0.9%NACL 100 MG in IV 1 EA IV SCH ×2 (06:22→20:04)
[2023-01-31 06:27] LABS: ALBUMIN 2.5 G/DL (3.2-5.2); BILIRUBIN,TOTAL 0.3 MG/DL (0.3-1.2); CALCIUM LEVEL 8.2 MG/DL (8.3-10.6); CREATININE FOR GFR 1.52 MG/DL (0.70-1.30); GLOMERULAR FILTRATION RATE 48.1 (>42); MAGNESIUM LEVEL 2.2 MG/DL (1.8-2.4); PHOSPHORUS LEVEL 1.5 MG/DL (2.4-5.1); POTASSIUM SERUM 3.1 MMOL/L (3.5-5.1); TOTAL PROTEIN 5.4 G/DL (5.7-8.2)
[2023-01-31 06:32] LABS: BASO # 0.1 10^3/uL (0.0-0.2); BASO % 0.6 % (0.0-1.0); LYMPH # 0.9 10^3/uL (1.5-5.0); LYMPH % 9.9 % (24.0-44.0); MONO # 0.6 10^3/uL (0.0-0.8); MONO % 6.4 % (2.0-8.0); NEUTROPHILS # 7.3 10^3/uL (1.5-8.5); NEUTROPHILS % 81.6 % (36.0-66.0)
[2023-01-31] MEDS: KCL 20MEQ IN 100ML SWI (KRUN) 20 MEQ in IV 1 EA IV SCH ×4 (06:52→08:56)
[2023-01-31] MEDS ORDERED: CISATRACURIUM 10MG/ML 20 ML VIAL IV ONE (07:10)
[2023-01-31] MEDS ORDERED: INSULIN LISPRO (NovoLOG) PER UNIT SC SCH (07:30)
[2023-01-31] MEDS: INSULIN LISPRO (NovoLOG) PER UNIT SC SCH ×3 (08:55→17:14)
[2023-01-31] MEDS: CISATRACURIUM 200 MG in NS 480 ML IV SCH ×2 (08:56→22:18)
[2023-01-31] MEDS: ENOXAPARIN 120MG/0.8ML SYRINGE SC SCH ×2 (08:59→20:20)
[2023-01-31] MEDS: LACRILUBE (AKWA TEARS) OPHTH OINT 3.5GM OU SCH ×3 (09:02→20:20)
[2023-01-31] MEDS: levETIRAcetam INJection 1,000 MG in D5W 100 ML IV SCH ×2 (09:02→20:04)
[2023-01-31] MEDS: CHLORHEXIDINE GLUCONATE 0.12 % 15ML UDC (PERIDEX ORAL RINSE) MT SCH ×2 (09:05→20:21)
[2023-01-31] MEDS: PANTOPRAZOLE 40MG VIAL IV SCH (09:05)
[2023-01-31] MEDS: THIAMINE 200MG 2ML VIAL IM SCH (09:14)
[2023-01-31 09:55] LABS: ABG HCO3 19.7 MMOL/L (22.0-26.0); ABG O2 SATURATION 92.5 % (95.0-99.0); ABG PARTIAL PRESSURE CO2 39.9 mmHg (35.0-45.0); ABG PARTIAL PRESSURE O2 72.2 mmHg (75.0-100.0); ABG STANDARD HCO3 19.4 MMOL/L. (22.0-26.0); ABG pH (ARTERIAL) 7.312 UNITS (7.350-7.450)
[2023-01-31 09:57] LABS: HEMATOCRIT 35.1 % (42.0-52.0); HEMOGLOBIN 11.5 g/dl (13.5-17.5); MEAN CORPUSCULAR HEMOGLOBIN 32.2 pg (27.0-33.0); MEAN CORPUSCULAR HGB CONC 32.8 g/dl (32.0-36.5); MEAN CORPUSCULAR VOLUME 98.3 fl (80.0-96.0); PLATELET COUNT, AUTOMATED 163 10^3/uL (150-450); RED BLOOD COUNT 3.57 10^6/uL (4.30-6.10); WHITE BLOOD COUNT 8.9 10^3/uL (4.0-10.0)
[2023-01-31 10:08] LABS: INR 1.18; PROTHROMBIN TIME 15.3 SECONDS (12.5-14.5)
[2023-01-31 10:09] LABS: PARTIAL THROMBOPLASTIN TIME 32.8 SECONDS (24.8-34.2)
[2023-01-31] MEDS ORDERED: OXYC-517 PO (10:38)
[2023-01-31] MEDS ORDERED: OMEP40CA5 PO (10:38)
[2023-01-31] MEDS ORDERED: HOME MED LIST COMPLETE! XX SCH (10:45)
[2023-01-31 11:43] LABS: ALBUMIN 2.5 G/DL (3.2-5.2); BILIRUBIN,TOTAL 0.5 MG/DL (0.3-1.2); CALCIUM LEVEL 8.3 MG/DL (8.3-10.6); CREATININE FOR GFR 1.62 MG/DL (0.70-1.30); GLOMERULAR FILTRATION RATE 44.7 (>42); PHOSPHORUS LEVEL 2.4 MG/DL (2.4-5.1); POTASSIUM SERUM 3.5 MMOL/L (3.5-5.1); TOTAL PROTEIN 5.3 G/DL (5.7-8.2)
[2023-01-31 13:28] LABS: ABG BASE EXCESS -4.3 (-2.0-2.0); ABG HCO3 21.5 MMOL/L (22.0-26.0); ABG O2 SATURATION 93.8 % (95.0-99.0); ABG PARTIAL PRESSURE CO2 42.4 mmHg (35.0-45.0); ABG PARTIAL PRESSURE O2 77.6 mmHg (75.0-100.0); ABG STANDARD HCO3 20.8 MMOL/L. (22.0-26.0); ABG TOTAL CO2 22.8 MMOL/L (23.0-31.0); ABG pH (ARTERIAL) 7.323 UNITS (7.350-7.450)
[2023-01-31 13:47] LABS: HEMATOCRIT 34.5 % (42.0-52.0); HEMOGLOBIN 11.3 g/dl (13.5-17.5); MEAN CORPUSCULAR HEMOGLOBIN 32.3 pg (27.0-33.0); MEAN CORPUSCULAR HGB CONC 32.8 g/dl (32.0-36.5); MEAN CORPUSCULAR VOLUME 98.6 fl (80.0-96.0); PLATELET COUNT, AUTOMATED 158 10^3/uL (150-450); WHITE BLOOD COUNT 8.9 10^3/uL (4.0-10.0)
[2023-01-31] MEDS: NOREPINEPHRINE BITARTRATE 16 MG in D5W 484 ML IV SCH (13:52)
[2023-01-31 14:03] LABS: INR 1.23; PROTHROMBIN TIME 15.8 SECONDS (12.5-14.5)
[2023-01-31 14:06] LABS: ALBUMIN 2.4 G/DL (3.2-5.2); BILIRUBIN,TOTAL 0.4 MG/DL (0.3-1.2); CALCIUM LEVEL 8.2 MG/DL (8.3-10.6); CREATININE FOR GFR 1.69 MG/DL (0.70-1.30); GLOMERULAR FILTRATION RATE 42.6 (>42); PHOSPHORUS LEVEL 2.9 MG/DL (2.4-5.1); POTASSIUM SERUM 3.5 MMOL/L (3.5-5.1); TOTAL PROTEIN 5.2 G/DL (5.7-8.2)
[2023-01-31] MEDS ORDERED: D5W/0.45% SODIUM CHLORIDE 1,000 ML IV ONE (15:35)
[2023-01-31 17:39] LABS: HEMATOCRIT 35.5 % (42.0-52.0); HEMOGLOBIN 11.4 g/dl (13.5-17.5); MEAN CORPUSCULAR HEMOGLOBIN 31.8 pg (27.0-33.0); MEAN CORPUSCULAR HGB CONC 32.1 g/dl (32.0-36.5); MEAN CORPUSCULAR VOLUME 99.2 fl (80.0-96.0); PLATELET COUNT, AUTOMATED 161 10^3/uL (150-450); RED BLOOD COUNT 3.58 10^6/uL (4.30-6.10)
[2023-01-31 17:57] LABS: INR 1.35; PROTHROMBIN TIME 16.3 SECONDS (12.5-14.5)
[2023-01-31 17:58] LABS: PARTIAL THROMBOPLASTIN TIME 44.4 SECONDS (24.8-34.2)
[2023-01-31 18:09] LABS: ALBUMIN 2.4 G/DL (3.2-5.2); BILIRUBIN,TOTAL 0.4 MG/DL (0.3-1.2); CALCIUM LEVEL 8.2 MG/DL (8.3-10.6); CREATININE FOR GFR 1.7 MG/DL (0.70-1.30); GLOMERULAR FILTRATION RATE 42.3 (>42); PHOSPHORUS LEVEL 3.5 MG/DL (2.4-5.1); POTASSIUM SERUM 3.9 MMOL/L (3.5-5.1); TOTAL PROTEIN 5.2 G/DL (5.7-8.2)
[2023-01-31 18:19] LABS: ABG BASE EXCESS -4.1 (-2.0-2.0); ABG HCO3 22.1 MMOL/L (22.0-26.0); ABG O2 SATURATION 94.8 % (95.0-99.0); ABG PARTIAL PRESSURE CO2 45.1 mmHg (35.0-45.0); ABG PARTIAL PRESSURE O2 82.3 mmHg (75.0-100.0); ABG TOTAL CO2 23.5 MMOL/L (23.0-31.0); ABG pH (ARTERIAL) 7.309 UNITS (7.350-7.450)
[2023-01-31 21:28] LABS: ABG BASE EXCESS -5.2 (-2.0-2.0); ABG HCO3 20.9 MMOL/L (22.0-26.0); ABG O2 SATURATION 97.5 % (95.0-99.0); ABG PARTIAL PRESSURE O2 105.1 mmHg (75.0-100.0); ABG STANDARD HCO3 20.2 MMOL/L. (22.0-26.0); ABG TOTAL CO2 22.2 MMOL/L (23.0-31.0); ABG pH (ARTERIAL) 7.305 UNITS (7.350-7.450)
[2023-01-31 21:53] LABS: HEMATOCRIT 35.7 % (42.0-52.0); HEMOGLOBIN 11.5 g/dl (13.5-17.5); MEAN CORPUSCULAR HGB CONC 32.2 g/dl (32.0-36.5); MEAN CORPUSCULAR VOLUME 99.4 fl (80.0-96.0); PLATELET COUNT, AUTOMATED 155 10^3/uL (150-450); RED BLOOD COUNT 3.59 10^6/uL (4.30-6.10)
[2023-01-31 22:17] LABS: INR 1.36; PROTHROMBIN TIME 16.4 SECONDS (12.5-14.5)
[2023-01-31 22:18] LABS: PARTIAL THROMBOPLASTIN TIME 46.5 SECONDS (24.8-34.2)
[2023-01-31 22:26] LABS: ALBUMIN 2.3 G/DL (3.2-5.2); BILIRUBIN,TOTAL 0.4 MG/DL (0.3-1.2); CALCIUM LEVEL 8.1 MG/DL (8.3-10.6); CREATININE FOR GFR 1.72 MG/DL (0.70-1.30); GLOMERULAR FILTRATION RATE 41.7 (>42); PHOSPHORUS LEVEL 2.8 MG/DL (2.4-5.1); POTASSIUM SERUM 3.8 MMOL/L (3.5-5.1); TOTAL PROTEIN 5.2 G/DL (5.7-8.2)
[2023-02-01] VITALS (100 sets, daily range): BP systolic 90–162; BP diastolic 46–72; TEMP 97.3–100.2; O2SAT 90–100
[2023-02-01] MEDS: PIPERACILLIN/TAZOBACTAM SOD 3.375 GM in D5W MINI-BAG PLUS 50 ML IV SCH ×5 (00:08→23:31)
[2023-02-01] MEDS: ALBUTEROL SULFATE 2.5MG/0.5ML INH NEB SOLN NEB SCH ×7 (00:18→20:04)
[2023-02-01 02:01] LABS: ABG BASE EXCESS -3.1 (-2.0-2.0); ABG HCO3 22.7 MMOL/L (22.0-26.0); ABG O2 SATURATION 98.1 % (95.0-99.0); ABG PARTIAL PRESSURE CO2 43.6 mmHg (35.0-45.0); ABG PARTIAL PRESSURE O2 113.3 mmHg (75.0-100.0); ABG STANDARD HCO3 21.9 MMOL/L. (22.0-26.0); ABG pH (ARTERIAL) 7.334 UNITS (7.350-7.450)
[2023-02-01 02:04] LABS: HEMATOCRIT 36.3 % (42.0-52.0); HEMOGLOBIN 11.7 g/dl (13.5-17.5); MEAN CORPUSCULAR HEMOGLOBIN 32.1 pg (27.0-33.0); MEAN CORPUSCULAR HGB CONC 32.2 g/dl (32.0-36.5); MEAN CORPUSCULAR VOLUME 99.5 fl (80.0-96.0); PLATELET COUNT, AUTOMATED 167 10^3/uL (150-450); RED BLOOD COUNT 3.65 10^6/uL (4.30-6.10); WHITE BLOOD COUNT 12.5 10^3/uL (4.0-10.0)
[2023-02-01 02:14] LABS: ALBUMIN 2.3 G/DL (3.2-5.2); BILIRUBIN,TOTAL 0.4 MG/DL (0.3-1.2); CALCIUM LEVEL 8.4 MG/DL (8.3-10.6); CREATININE FOR GFR 1.75 MG/DL (0.70-1.30); GLOMERULAR FILTRATION RATE 40.9 (>42); PHOSPHORUS LEVEL 2.9 MG/DL (2.4-5.1); TOTAL PROTEIN 5.4 G/DL (5.7-8.2)
[2023-02-01 02:28] LABS: INR 1.34; PROTHROMBIN TIME 16.3 SECONDS (12.5-14.5)
[2023-02-01 02:29] LABS: PARTIAL THROMBOPLASTIN TIME 44.4 SECONDS (24.8-34.2)
[2023-02-01 05:23] LABS: ABG HCO3 22.6 MMOL/L (22.0-26.0); ABG O2 SATURATION 97.7 % (95.0-99.0); ABG PARTIAL PRESSURE CO2 42.5 mmHg (35.0-45.0); ABG PARTIAL PRESSURE O2 101.4 mmHg (75.0-100.0); ABG TOTAL CO2 23.9 MMOL/L (23.0-31.0); ABG pH (ARTERIAL) 7.344 UNITS (7.350-7.450)
[2023-02-01 05:30] LABS: HEMATOCRIT 37.5 % (42.0-52.0); MEAN CORPUSCULAR HEMOGLOBIN 31.7 pg (27.0-33.0); MEAN CORPUSCULAR VOLUME 99.2 fl (80.0-96.0); PLATELET COUNT, AUTOMATED 153 10^3/uL (150-450); RED BLOOD COUNT 3.78 10^6/uL (4.30-6.10); WHITE BLOOD COUNT 12.3 10^3/uL (4.0-10.0)
[2023-02-01] MEDS: INSULIN LISPRO (NovoLOG) PER UNIT SC SCH ×5 (05:35→23:37)
[2023-02-01 05:59] LABS: ALBUMIN 2.4 G/DL (3.2-5.2); BILIRUBIN,TOTAL 0.4 MG/DL (0.3-1.2); CALCIUM LEVEL 8.7 MG/DL (8.3-10.6); CREATININE FOR GFR 1.76 MG/DL (0.70-1.30); GLOMERULAR FILTRATION RATE 40.6 (>42); PHOSPHORUS LEVEL 3.5 MG/DL (2.4-5.1); POTASSIUM SERUM 4.1 MMOL/L (3.5-5.1); TOTAL PROTEIN 5.5 G/DL (5.7-8.2)
[2023-02-01 06:04] LABS: INR 1.3; PROTHROMBIN TIME 15.8 SECONDS (12.5-14.5)
[2023-02-01 06:05] LABS: PARTIAL THROMBOPLASTIN TIME 41.5 SECONDS (24.8-34.2)
[2023-02-01] MEDS: THIAMINE 200MG 2ML VIAL IM SCH (08:25)
[2023-02-01] MEDS: PANTOPRAZOLE 40MG VIAL IV SCH (08:25)
[2023-02-01] MEDS: CHLORHEXIDINE GLUCONATE 0.12 % 15ML UDC (PERIDEX ORAL RINSE) MT SCH ×2 (08:25→20:23)
[2023-02-01] MEDS: ENOXAPARIN 120MG/0.8ML SYRINGE SC SCH ×2 (08:25→20:23)
[2023-02-01] MEDS: LACRILUBE (AKWA TEARS) OPHTH OINT 3.5GM OU SCH ×3 (08:26→20:22)
[2023-02-01] MEDS: levETIRAcetam INJection 1,000 MG in D5W 100 ML IV SCH ×2 (08:58→20:22)
[2023-02-01 09:39] LABS: ABG BASE EXCESS -2.6 (-2.0-2.0); ABG HCO3 22.1 MMOL/L (22.0-26.0); ABG O2 SATURATION 97.8 % (95.0-99.0); ABG PARTIAL PRESSURE CO2 38.3 mmHg (35.0-45.0); ABG PARTIAL PRESSURE O2 114.8 mmHg (75.0-100.0); ABG STANDARD HCO3 22.3 MMOL/L. (22.0-26.0); ABG TOTAL CO2 23.3 MMOL/L (23.0-31.0)
[2023-02-01 09:59] LABS: HEMATOCRIT 36.8 % (42.0-52.0); HEMOGLOBIN 11.8 g/dl (13.5-17.5); MEAN CORPUSCULAR HEMOGLOBIN 32.2 pg (27.0-33.0); MEAN CORPUSCULAR HGB CONC 32.1 g/dl (32.0-36.5); MEAN CORPUSCULAR VOLUME 100.3 fl (80.0-96.0); PLATELET COUNT, AUTOMATED 166 10^3/uL (150-450); RED BLOOD COUNT 3.67 10^6/uL (4.30-6.10)
[2023-02-01 10:13] LABS: INR 1.36; PROTHROMBIN TIME 16.4 SECONDS (12.5-14.5)
[2023-02-01 10:14] LABS: PARTIAL THROMBOPLASTIN TIME 43.9 SECONDS (24.8-34.2)
[2023-02-01 10:32] LABS: ALBUMIN 2.3 G/DL (3.2-5.2); BILIRUBIN,TOTAL 0.5 MG/DL (0.3-1.2); CALCIUM LEVEL 8.5 MG/DL (8.3-10.6); CREATININE FOR GFR 1.76 MG/DL (0.70-1.30); GLOMERULAR FILTRATION RATE 40.6 (>42); PHOSPHORUS LEVEL 3.7 MG/DL (2.4-5.1); POTASSIUM SERUM 4.1 MMOL/L (3.5-5.1); TOTAL PROTEIN 5.3 G/DL (5.7-8.2)
[2023-02-01] MEDS: NOREPINEPHRINE BITARTRATE 16 MG in D5W 484 ML IV SCH (14:18)
[2023-02-01] MEDS: MIDAZOLAM INJ 2MG/2ML VIAL IV PRN (20:22)
[2023-02-02] VITALS (62 sets, daily range): BP systolic 80–162; BP diastolic 49–80; TEMP 97.9–100.6; O2SAT 92–99
[2023-02-02] MEDS: ALBUTEROL SULFATE 2.5MG/0.5ML INH NEB SOLN NEB SCH ×8 (00:48→23:09)
[2023-02-02] MEDS: PIPERACILLIN/TAZOBACTAM SOD 3.375 GM in D5W MINI-BAG PLUS 50 ML IV SCH ×4 (05:15→23:59)
[2023-02-02 05:59] LABS: ABG BASE EXCESS -0.8 (-2.0-2.0); ABG O2 SATURATION 95.4 % (95.0-99.0); ABG PARTIAL PRESSURE CO2 40.1 mmHg (35.0-45.0); ABG PARTIAL PRESSURE O2 79.1 mmHg (75.0-100.0); ABG STANDARD HCO3 23.8 MMOL/L. (22.0-26.0); ABG TOTAL CO2 25.2 MMOL/L (23.0-31.0); ABG pH (ARTERIAL) 7.395 UNITS (7.350-7.450)
[2023-02-02] MEDS: INSULIN LISPRO (NovoLOG) PER UNIT SC SCH ×4 (06:00→23:59)
[2023-02-02 06:26] LABS: AMPHETAMINES LEVEL URINE NEGATIVE (NEGATIVE); BARBITURATES URINE NEGATIVE (NEGATIVE); CANNABINOIDS URINE NEGATIVE (NEGATIVE); COCAINE METABOLITE URINE NEGATIVE (NEGATIVE); METHADONE URINE NEGATIVE (NEGATIVE); OPIATES URINE NEGATIVE (NEGATIVE); PHENCYCLIDINE URINE NEGATIVE (NEGATIVE)
[2023-02-02 06:28] LABS: BENZODIAZEPINES URINE POSITIVE (NEGATIVE)
[2023-02-02] MEDS: CHLORHEXIDINE GLUCONATE 0.12 % 15ML UDC (PERIDEX ORAL RINSE) MT SCH ×2 (09:03→20:40)
[2023-02-02] MEDS: LACRILUBE (AKWA TEARS) OPHTH OINT 3.5GM OU SCH ×3 (09:04→20:40)
[2023-02-02] MEDS: PANTOPRAZOLE 40MG VIAL IV SCH (09:04)
[2023-02-02] MEDS: THIAMINE 200MG 2ML VIAL IM SCH (09:04)
[2023-02-02] MEDS: levETIRAcetam INJection 1,000 MG in D5W 100 ML IV SCH ×2 (09:04→19:41)
[2023-02-02] MEDS: ENOXAPARIN 120MG/0.8ML SYRINGE SC SCH ×2 (09:04→20:40)
[2023-02-02] MEDS: NOREPINEPHRINE BITARTRATE 16 MG in D5W 484 ML IV SCH (14:37)
[2023-02-03] VITALS (19 sets, daily range): BP systolic 81–149; BP diastolic 52–84; TEMP 95.7–96.8; O2SAT 94–97
[2023-02-03] MEDS: ALBUTEROL SULFATE 2.5MG/0.5ML INH NEB SOLN NEB SCH ×3 (03:17→11:06)
[2023-02-03 04:17] LABS: ABG HCO3 24.4 MMOL/L (22.0-26.0); ABG O2 SATURATION 96.5 % (95.0-99.0); ABG PARTIAL PRESSURE CO2 38.5 mmHg (35.0-45.0); ABG PARTIAL PRESSURE O2 87.9 mmHg (75.0-100.0); ABG STANDARD HCO3 24.5 MMOL/L. (22.0-26.0); ABG TOTAL CO2 25.5 MMOL/L (23.0-31.0); ABG pH (ARTERIAL) 7.419 UNITS (7.350-7.450)
[2023-02-03 04:43] LABS: HEMATOCRIT 37.1 % (42.0-52.0); HEMOGLOBIN 11.6 g/dl (13.5-17.5); MEAN CORPUSCULAR HEMOGLOBIN 31.8 pg (27.0-33.0); MEAN CORPUSCULAR HGB CONC 31.3 g/dl (32.0-36.5); MEAN CORPUSCULAR VOLUME 101.6 fl (80.0-96.0); PLATELET COUNT, AUTOMATED 157 10^3/uL (150-450); RED BLOOD COUNT 3.65 10^6/uL (4.30-6.10); WHITE BLOOD COUNT 9.1 10^3/uL (4.0-10.0)
[2023-02-03 04:57] LABS: CALCIUM LEVEL 9.2 MG/DL (8.3-10.6); CREATININE FOR GFR 2.12 MG/DL (0.70-1.30); GLOMERULAR FILTRATION RATE 32.8 (>42); POTASSIUM SERUM 3.5 MMOL/L (3.5-5.1)
[2023-02-03] MEDS ORDERED: D5W/0.45% SODIUM CHLORIDE 1,000 ML IV SCH (05:20)
[2023-02-03] MEDS: PIPERACILLIN/TAZOBACTAM SOD 3.375 GM in D5W MINI-BAG PLUS 50 ML IV SCH (05:27)
[2023-02-03] MEDS: INSULIN LISPRO (NovoLOG) PER UNIT SC SCH ×2 (05:27→12:00)
[2023-02-03] MEDS: levETIRAcetam INJection 1,000 MG in D5W 100 ML IV SCH (08:54)
[2023-02-03] MEDS: ENOXAPARIN 120MG/0.8ML SYRINGE SC SCH (08:55)
[2023-02-03] MEDS: THIAMINE 200MG 2ML VIAL IM SCH (08:55)
[2023-02-03] MEDS: PANTOPRAZOLE 40MG VIAL IV SCH (08:56)
[2023-02-03] MEDS: LACRILUBE (AKWA TEARS) OPHTH OINT 3.5GM OU SCH (08:56)
[2023-02-03] MEDS: CHLORHEXIDINE GLUCONATE 0.12 % 15ML UDC (PERIDEX ORAL RINSE) MT SCH (08:56)
[2023-02-03 09:57] LABS: AMPHETAMINES LEVEL URINE NEGATIVE (NEGATIVE); BARBITURATES URINE NEGATIVE (NEGATIVE)
[2023-02-03 09:58] LABS: CANNABINOIDS URINE NEGATIVE (NEGATIVE); COCAINE METABOLITE URINE NEGATIVE (NEGATIVE); METHADONE URINE NEGATIVE (NEGATIVE); OPIATES URINE NEGATIVE (NEGATIVE); PHENCYCLIDINE URINE NEGATIVE (NEGATIVE)
[2023-02-03 09:59] LABS: BENZODIAZEPINES URINE POSITIVE (NEGATIVE)
[2023-02-03] MEDS ORDERED: D5W 1,000 ML IV ONE (10:05)
[2023-02-03] MEDS ORDERED: D5W 1,000 ML IV SCH (10:10)
[2023-02-03] MEDS ORDERED: MORPHINE 2 MG/ML 1ML VIAL IV PRN (12:55)
== END 2023-02-03 14:43 | disposition expired | DRG 917 ==
LOC: M ED 18:09 → M ICU 21:28
PROVIDERS: ADMIT Internal Medicine; ATTEND Internal Medicine
PROC: 0BH17EZ Insertion of Endotracheal Airway into Trachea, Via Natural or Artificial Opening (ICD-10-PCS; principal; 2023-01-30)
PROC: 5A1945Z Respiratory Ventilation, 24-96 Consecutive Hours (ICD-10-PCS; 2023-01-30)
DX: T48.0X1A Poisoning by oxytocic drugs, accidental (unintentional), initial encounter (principal); J69.0 Pneumonitis due to inhalation of food and vomit; J96.00 Acute respiratory failure, unspecified whether with hypoxia or hypercapnia; G93.1 Anoxic brain damage, not elsewhere classified; N17.9 Acute kidney failure, unspecified; E87.20 Acidosis, unspecified; S22.43XA Multiple fractures of ribs, bilateral, initial encounter for closed fracture; S32.010A Wedge compression fracture of first lumbar vertebra, initial encounter for closed fracture; I95.9 Hypotension, unspecified; R73.9 Hyperglycemia, unspecified; R29.6 Repeated falls; R56.9 Unspecified convulsions; F10.220 Alcohol dependence with intoxication, uncomplicated; N18.30 Chronic kidney disease, stage 3 unspecified; I12.9 Hypertensive chronic kidney disease with stage 1 through stage 4 chronic kidney disease, or unspecified chronic kidney disease; I46.8 Cardiac arrest due to other underlying condition; E87.6 Hypokalemia; Z66 Do not resuscitate; Z86.718 Personal history of other venous thrombosis and embolism; Z86.711 Personal history of pulmonary embolism; W01.0XXA Fall on same level from slipping, tripping and stumbling without subsequent striking against object, initial encounter; Y92.009 Unspecified place in unspecified non-institutional (private) residence as the place of occurrence of the external cause; Z20.822 Contact with and (suspected) exposure to COVID-19; Z79.899 Other long term (current) drug therapy